=== PATIENT | female | born 1970 | race Caucasian/White ===

== ENCOUNTER → 2017-01-01 | Outpatient (CLI) | payer OTHER ==
[~2017-01-01] MED LIST: AMT50 PO; ATV/1 PO; BUPR-83 PO; BUSP15TA70 PO; OPTIRAY 320 IV PRN; PREG100C PO; QUET-205 PO; SERT-234 PO; TOPI50TA16 PO
--- NOTE | 2017-01-01 20:09 | DIAGNOSTIC IMAGING REPORT ---
CT OF THE ABDOMEN AND PELVIS WITH CONTRAST CLINICAL HISTORY: Right lower quadrant abdominal pain, diarrhea and nausea. COMPARISON STUDY: None. TECHNIQUE: Following IV administration of 119 mL of Optiray-320, axial images of the abdomen and pelvis were obtained from the lung bases to the proximal femurs. Images were reviewed in the axial, sagittal, and coronal planes. IV contrast was administered without complication. Oral contrast was administered. CT DOSE: 778.72 mGy.cm FINDINGS: There is suspected fatty infiltration of the liver. Mild dilatation of the common bile duct is likely related to prior cholecystectomy. There is no peripancreatic infiltration. The common bile measures 8 mm in caliber. The spleen, adrenal glands and kidneys are normal. There is no hydronephrosis. The caliber and wall thickness of small and large bowel are normal. The appendix is normal. The uterus is surgically absent. No suspicious skeletal lesions are present. Postsurgical findings within the spine are noted with hardware. There is no lymphadenopathy or ascites. There is no evidence for a bowel obstruction. IMPRESSION: 1. No acute process within the abdomen or pelvis. Normal appendix. 2. Mild dilatation of the common bile duct likely related to prior cholecystectomy. 3. Fatty liver. 4. No bowel obstruction. Electronically signed by: Chaitanya Herman M.D. 01/01/2017 8:07 PM Dictated Date/Time: 01/01/2017 8:02 PM
== END | disposition home or self-care (01) ==
LOC: C.CTS 17:36
PROVIDERS: ATTEND Registered Nurse
DX: R68.83 Chills (without fever) (principal); R19.7 Diarrhea, unspecified; R11.0 Nausea; R10.813 Right lower quadrant abdominal tenderness; K76.0 Fatty (change of) liver, not elsewhere classified

== ENCOUNTER → 2017-01-24 | Day surgery (SDC) | payer OTHER ==
[~2017-01-24] VITALS: Ht 162.6 cm; Wt 93.2 kg
[~2017-01-24] MED LIST changes: +LIDOCAINE HCL 2% 2 ML VIAL (20MG/ML) ONE; -OPTIRAY 320 IV PRN; +PROPOFOL IV EMULSION 10 MG/ML 20 ML VIAL IV ONE; +SODIUM CHLORIDE 0.9% 500ML 500 ML IV ONE
[2017-01-24 11:25] VITALS: Ht 162.6 cm; Wt 93.2 kg
--- NOTE | 2017-01-24 11:27 | Endo History and Physical ---
History & Physical Date of Service: January 24, 2017. Chief Complaint: Diarrhea, Abdominal pain Referring Physician: CHUY Bailey History of Present Illness 47 yo CF who presents for colonoscopy secondary to diarrhea and abdominal pain. Past Medical History Anxiety, Reflux, Depression Past Surgical History Hx Cardiac Surgery: No Hx Internal Defibrillator: No Hx Pacemaker: No Hx Abdominal Surgery: Yes (LAP ZAKIYA) Hx Post-Op Nausea and Vomiting: No Hx Cancer Surgery: No Hx Thoracic Surgery: No Hx Orthopedic: Yes (HERNIATED DISC REPAIR IN LUMBAR) Hx Urinary Tract Surgery: No Social History Smoking Status: Current Every Day Smoker Hx Substance Use: No Hx Alcohol Use: Yes (OCCASIONAL) Allergies Coded Allergies: No Known Allergies (Unverified , 01/24/17) Current Medications Reported Home Medications Medications Dose Route/Sig Max Daily Dose Days Date Category Seroquel (Quetiapine Fumarate) 200 Mg Tab 250 Mg PO HS 06/27/15 Reported Buspar (Buspirone Hcl) 15 Mg Tab 20 Mg PO TID 06/01/14 Reported Ativan (Lorazepam) 1 Mg Tab 1 Mg PO BID 06/01/14 Reported Zoloft (Sertraline HCl) 100 Mg Tab 200 Mg PO QAM 06/01/14 Reported Wellbutrin (Bupropion HCl) 100 Mg Tab 150 Mg PO NOON 06/01/14 Reported Lyrica (Pregabalin) 100 Mg Cap 100 Mg PO TID 06/01/14 Reported Physical Exam General Appearance: WD/WN, no apparent distress Respiratory/Chest: Auscultation: breath sounds normal Cardiovascular: Heart Auscultation: RRR Abdomen: Bowel Sounds: normal Inspection & Palpation: soft, non-distended, no tenderness, guarding & rebound Assessment and Plan Assessment: 47 yo CF who presents for colonoscopy secondary to diarrhea and abdominal pain. Plan: Proceed with colonoscopy.
--- NOTE | 2017-01-24 12:12 | Discharge Instructions ---
Endoscopy Patient Instructions Date / Procedure(s) Performed January 24, 2017. Colonoscopy Allergy Information Coded Allergies: No Known Allergies (Unverified , 01/24/17) Discharge Date / Findings January 24, 2017. Colon polyps Random colon biopsies Stool aspirate collected Diverticulosis Internal hemorrhoids Medication Instructions OK to resume all medications today as prescribed Reported Home Medications Medications Dose Route/Sig Max Daily Dose Days Date Category Seroquel (Quetiapine Fumarate) 200 Mg Tab 250 Mg PO HS 06/27/15 Reported Buspar (Buspirone Hcl) 15 Mg Tab 20 Mg PO TID 06/01/14 Reported Ativan (Lorazepam) 1 Mg Tab 1 Mg PO BID 06/01/14 Reported Zoloft (Sertraline HCl) 100 Mg Tab 200 Mg PO QAM 06/01/14 Reported Wellbutrin (Bupropion HCl) 100 Mg Tab 150 Mg PO NOON 06/01/14 Reported Lyrica (Pregabalin) 100 Mg Cap 100 Mg PO TID 06/01/14 Reported Provider Instructions Activity Restrictions - No exercising or heavy lifting for 24 hours. - Do not drink alcohol the day of the procedure. - Do not drive a car or operate machinery until the day after the procedure. - Do not make any important decisions or sign important papers in 24 hours after the procedure. Following Day: - Return to full activity which may include returning to work/school. Diet Start your diet with liquids and light foods (jello, soup, juice, toast). Then eat your usual diet if not nauseated. Treatment For Common After Affects For mild abdominal pain, bloating, or excessive gas: - Rest - Eat lightly - Lie on right side Follow-Up Information Follow-up with Dr. Patterson as scheduled Anesthesia Information What You Should Know You have had a procedure that required some medicine to reduce anxiety and discomfort. This treatment is called moderate sedation. After receiving the treatment, you may be sleepy, but you will be able to breathe on your own. The effects of the treatment may last for several hours. Follow these instructions along with Activity/Diet recommendations noted above: * Do NOT do anything where dizziness or clumsiness would be dangerous. * Rest quietly at home today, then you can be up and about tomorrow. * Have a responsible person stay with you the rest of today. * You may have had an I.V. today. If so, you may take the dressing off later today. Recommendations Call your doctor if: * Trouble breathing * Continuous vomiting for more than 24 hours * Temperature above 101 degrees * Severe abdominal pain or bloating * Pain not relieved by pain medicine ordered * There is increased drainage or redness from any incision * A large amount of rectal bleeding greater than 2-3 tablespoons. (If you had a polyp/s removed or have hemorrhoids, a small amount of blood - from the rectum is to be expected.) * You have any unanswered questions or concerns. IN THE EVENT OF A SERIOUS EMERGENCY, GO TO THE NEAREST EMERGENCY ROOM Your discharge instructions were prepared by provider Tad Be. Patient Instructions Signature Page Brandie Ayala Patient (or Guardian) Signature/Date: I have read and understand the instructions given to me by my caregivers. Caregiver/RN/Doctor Signature/Date: The above-named patient and/or guardian has received patient instructions on this date. + Original Patient Signature Page (only) stays with chart. Please make copy for patient.
--- NOTE | 2017-01-24 12:19 | GI REPORT ---
Procedure Date: 01/24/2017 11:46 AM Procedure: Colonoscopy Indications: Generalized abdominal pain, Chronic diarrhea Medicines: Monitored Anesthesia Care Complications: No immediate complications. Estimated Blood Loss: Estimated blood loss: none. Procedure: Pre-Anesthesia Assessment: - Prior to the procedure, a History and Physical was performed, and patient medications and allergies were reviewed. The patient's tolerance of previous anesthesia was also reviewed. The risks and benefits of the procedure and the sedation options and risks were discussed with the patient. All questions were answered, and informed consent was obtained. Prior Anticoagulants: The patient has taken no previous anticoagulant or antiplatelet agents. ASA Grade Assessment: II - A patient with mild systemic disease. After reviewing the risks and benefits, the patient was deemed in satisfactory condition to undergo the procedure. After I obtained informed consent, the scope was passed under direct vision. Throughout the procedure, the patient's blood pressure, pulse, and oxygen saturations were monitored continuously. The scope was introduced through the anus and advanced to the terminal ileum. The colonoscopy was performed without difficulty. The patient tolerated the procedure well. The quality of the bowel preparation was good. The terminal ileum, ileocecal valve, appendiceal orifice, and rectum were photographed. Findings: Three sessile polyps were found in the sigmoid colon, in the transverse colon and in the ascending colon. The polyps were 5 to 8 mm in size. These polyps were removed with a hot snare. Resection and retrieval were complete. Scattered small-mouthed diverticula were found in the entire colon. Non-bleeding internal hemorrhoids were found during retroflexion. The hemorrhoids were small. Several random biopsies were obtained with cold forceps for histology in the entire colon. Fluid aspiration for cytology was performed in the entire colon. Impression: - Three 5 to 8 mm polyps in the sigmoid colon, in the transverse colon and in the ascending colon, removed with a hot snare. Resected and retrieved. - Diverticulosis in the entire examined colon. - Non-bleeding internal hemorrhoids. - Several random biopsies were obtained in the entire colon. - Fluid aspiration was performed. Recommendation: - Resume previous diet. - Continue present medications. - Repeat colonoscopy for surveillance based on pathology results. - Return to primary care physician as previously scheduled. Tad Be DO 01/24/2017 12:18:52 PM This report has been signed electronically. Note Initiated On: 01/24/2017 11:46 AM I attest to the content of the Intraoperative Record and orders documented therein, exceptions below
[2017-01-24 12:54] VITALS: BP 112/75; PULSE 79; O2SAT 95
--- NOTE | 2017-01-24 13:11 | Anesthesiology Progress Note ---
Anesthesia Post Op Note Date & Time January 24, 2017 at 13:10 Vital Signs Pain Intensity: 0 Vital Signs Past 12 Hours Date Time Temp Pulse Resp B/P Pulse Ox O2 Delivery O2 Flow Rate FiO2 01/24/17 12:54 79 20 112/75 95 Room Air 01/24/17 12:44 79 20 98/64 95 Room Air 01/24/17 12:29 76 14 99/65 93 Room Air 01/24/17 12:14 79 14 98/56 93 Room Air 01/24/17 11:30 36.7 87 18 131/72 95 Room Air Notes Mental Status: alert / awake / arousable, participated in evaluation Pt Amnestic to Procedure: Yes Nausea / Vomiting: adequately controlled Pain: adequately controlled Airway Patency, RR, SpO2: stable & adequate BP & HR: stable & adequate Hydration State: stable & adequate Anesthetic Complications: no major complications apparent
== END | disposition home or self-care (01) ==
LOC: C.GI 11:07
PROVIDERS: ATTEND Internal Medicine
DX: D12.2 Benign neoplasm of ascending colon (principal); D12.3 Benign neoplasm of transverse colon; D12.5 Benign neoplasm of sigmoid colon; K57.30 Diverticulosis of large intestine without perforation or abscess without bleeding; K64.8 Other hemorrhoids; R10.84 Generalized abdominal pain; K52.9 Noninfective gastroenteritis and colitis, unspecified; K21.9 Gastro-esophageal reflux disease without esophagitis; F32.9 Major depressive disorder, single episode, unspecified; F41.9 Anxiety disorder, unspecified; F17.210 Nicotine dependence, cigarettes, uncomplicated; Z79.899 Other long term (current) drug therapy

== ENCOUNTER → 2017-05-24 | Outpatient (CLI) | payer OTHER ==
[~2017-05-24] MED LIST changes: -AMT50 PO; -LIDOCAINE HCL 2% 2 ML VIAL (20MG/ML) ONE; -PROPOFOL IV EMULSION 10 MG/ML 20 ML VIAL IV ONE; -SODIUM CHLORIDE 0.9% 500ML 500 ML IV ONE; -TOPI50TA16 PO
--- NOTE | 2017-05-24 11:34 | DIAGNOSTIC IMAGING REPORT ---
THYROID ULTRASOUND CLINICAL HISTORY: Nontoxic uninodular goiter. COMPARISON STUDY: Thyroid ultrasound May 21, 2016. TECHNIQUE: Sonography of the thyroid gland was performed. FINDINGS: The right thyroid lobe measures 4.7 x 1.7 x 1.5 cm and the left lobe measures 4.5 x 1 x 1.3 cm. The gland is slightly heterogeneous. No thyroid nodules are identified. The isthmus measures 0.4 cm in thickness. The appearance of the thyroid gland is unchanged. IMPRESSION: Normal size, slightly heterogeneous thyroid gland with no thyroid nodules identified. Electronically signed by: Chaitanya Herman M.D. 05/24/2017 11:33 AM Dictated Date/Time: 05/24/2017 11:31 AM
== END | disposition home or self-care (01) ==
LOC: C.ULTR 10:41
PROVIDERS: ATTEND Physician Assistant
DX: E04.1 Nontoxic single thyroid nodule (principal)